=== PATIENT | male | born 1995 | race Caucasian/White ===

== ENCOUNTER 2022-06-22 18:04 | Emergency (ER) | payer OTHER ==
[~2022-06-22] VITALS: Ht 188 cm; Wt 76.7 kg
[2022-06-22] MEDS ORDERED: ACET-683 PO (18:27)
[2022-06-22] MEDS ORDERED: PEPT262C2 PO (18:27)
[2022-06-22 22:01] LABS: BASO % 0.1 % (0.0-1.0); EOS % 0.5 % (0.0-3.0); HEMATOCRIT 45.6 % (42.0-52.0); HEMOGLOBIN 15.8 g/dl (13.5-17.5); LYMPH # 3.2 10^3/uL (1.5-5.0); LYMPH % 38.6 % (24.0-44.0); MEAN CORPUSCULAR HEMOGLOBIN 31.7 pg (27.0-33.0); MEAN CORPUSCULAR HGB CONC 34.6 g/dl (32.0-36.5); MEAN CORPUSCULAR VOLUME 91.4 fl (80.0-96.0); MONO # 0.7 10^3/uL (0.0-0.8); MONO % 7.8 % (2.0-8.0); NEUTROPHILS # 4.4 10^3/uL (1.5-8.5); NEUTROPHILS % 52.8 % (36.0-66.0); PLATELET COUNT, AUTOMATED 208 10^3/uL (150-450); RED BLOOD COUNT 4.99 10^6/uL (4.30-6.10); WHITE BLOOD COUNT 8.3 10^3/uL (4.0-10.0)
[2022-06-22 22:18] LABS: INR 0.94; PARTIAL THROMBOPLASTIN TIME 23.8 SECONDS (24.8-34.2); PROTHROMBIN TIME 12.8 SECONDS (12.5-14.5)
[2022-06-22 22:30] LABS: CK-MB VALUE MASS < 1.0 NG/ML (<3.6)
[2022-06-22 22:31] LABS: BLOOD UREA NITROGEN 21 MG/DL (9-23); CALCIUM LEVEL 9.4 MG/DL (8.5-10.1); CARBON DIOXIDE LEVEL 25 MMOL/L (20-31); CHLORIDE LEVEL 103 MMOL/L (98-107); CREATININE FOR GFR 1.36 MG/DL (0.70-1.30); GLOMERULAR FILTRATION RATE > 60.0 (>60); GLUCOSE, FASTING 78 MG/DL (60-100); POTASSIUM SERUM 4.2 MMOL/L (3.5-5.1); SODIUM LEVEL 140 MMOL/L (136-145)
[2022-06-22 22:33] LABS: THYROID STIMULATING HORMONE 1.356 uIU/ML (0.55-4.78)
[2022-06-22 22:36] LABS: CPK CREATINE PHOSPHOKINASE 247 U/L (46-171)
[2022-06-23] MEDS ORDERED: NS 1,000 ML IV ONE ×2 (00:40)
[2022-06-23] MEDS ORDERED: HOLTER MONITOR XX (00:57)
[2022-06-23 01:19] VITALS: BP 138/76
== END 2022-06-23 01:20 | disposition home or self-care (01) ==
LOC: M ED 18:04
DX: E86.0 Dehydration (principal); R00.2 Palpitations

== ENCOUNTER → 2022-06-23 | Outpatient (CLI) | payer OTHER ==
[~2022-06-23] MED LIST: ACET-683 PO; HOLTER MONITOR XX; PEPT262C2 PO
== END ==
LOC: M EKG 10:38
PROVIDERS: ATTEND Emergency Medicine
DX: R00.2 Palpitations (principal)